=== PATIENT | male | born 1960 | race Caucasian/White ===

== ENCOUNTER 2021-11-18 13:56 | Outpatient (CLI) | payer MEDICAID | END 2021-11-18 13:57 | disposition home or self-care (01) | LOC: CSHLAB 13:56 | PROVIDERS: ATTEND Internal Medicine Gastroenterology | DX: Z20.822 Contact with and (suspected) exposure to COVID-19 (principal); R19.5 Other fecal abnormalities | CPT/HCPCS: U0003; U0005 ==

== ENCOUNTER 2021-11-23 08:37 | Day surgery (SDC) | payer OTHER ==
[2021-11-18 11:38] VITALS: BMI 18.3
[2021-11-23] MEDS ORDERED: HYDROmorphone 0.5 MG/0.5 ML SYRINGE ONE (09:07)
[2021-11-23] MEDS ORDERED: Lidocaine 2% MPF 10 ML AMP (For Epidural Use) ONE (09:56)
[2021-11-23] MEDS ORDERED: PROPOFOL 40 ML ONE (09:56)
[2021-11-23] MEDS ORDERED: Fentanyl 100 MCG/2 ML VIAL ONE (10:21)
[2021-11-23] MEDS ORDERED: PROPOFOL 20 ML ONE (10:59)
== END 2021-11-23 11:42 | disposition home or self-care (01) ==
LOC: CSHSDC 08:37
PROVIDERS: ATTEND Internal Medicine Gastroenterology
PROC: 0DBN8ZX Excision of Sigmoid Colon, Via Natural or Artificial Opening Endoscopic, Diagnostic (ICD-10-PCS; principal; 2021-11-23)
PROC: 0DBH8ZX Excision of Cecum, Via Natural or Artificial Opening Endoscopic, Diagnostic (ICD-10-PCS; principal; 2021-11-23)
PROC: 0DBK8ZX Excision of Ascending Colon, Via Natural or Artificial Opening Endoscopic, Diagnostic (ICD-10-PCS; principal; 2021-11-23)
DX: D12.0 Benign neoplasm of cecum (principal); D12.2 Benign neoplasm of ascending colon; D12.5 Benign neoplasm of sigmoid colon; K64.9 Unspecified hemorrhoids; Q43.8 Other specified congenital malformations of intestine; E55.9 Vitamin D deficiency, unspecified; E78.5 Hyperlipidemia, unspecified; F17.210 Nicotine dependence, cigarettes, uncomplicated; Z79.899 Other long term (current) drug therapy
CPT/HCPCS: 88305; J1170; J2704; J3010